=== PATIENT | female | born 1960 | race Asian ===

== ENCOUNTER 2016-08-06 08:48 | Emergency (ER) | payer OTHER ==
[~2016-08-06] VITALS: Ht 152.4 cm; Wt 62.7 kg
[~2016-08-06 08:48] MED LIST: [UNRECOGNIZED DRUG - REMARK]
[2016-08-06] MEDS ORDERED: METHOCARBAMOL 500 MG TABLET PO ONE (10:00)
[2016-08-06] MEDS ORDERED: IBUPROFEN 800 MG TABLET PO ONE (10:00)
[2016-08-06 10:47] VITALS: BP 130/77
== END 2016-08-06 10:49 | disposition home or self-care (01) ==
LOC: EDUNIT# 08:48 → EMS 08:59
DX: S16.1XXA Strain of muscle, fascia and tendon at neck level, initial encounter (principal); V49.88XA Car occupant (driver) (passenger) injured in other specified transport accidents, initial encounter; Y93.89 Activity, other specified; Y92.89 Other specified places as the place of occurrence of the external cause; Y99.8 Other external cause status
CPT/HCPCS: 99283